=== PATIENT | male | born 1960 | race Caucasian/White ===

== ENCOUNTER 2017-05-21 22:09 | Emergency (ER) | payer BC ==
[~2017-05-21] VITALS: Ht 165.1 cm; Wt 82.0 kg
[2017-05-21] MEDS ORDERED: LEVETIRACETAM 500 MG TABLET PO STA (22:53)
[2017-05-21 23:34] LABS: BLOOD UREA NITROGEN 13 mg/dL (7-18)
[2017-05-22 00:01] VITALS: BP 122/78
== END 2017-05-22 00:27 | disposition home or self-care (01) ==
LOC: ED 23:59
DX: G40.909 Epilepsy, unspecified, not intractable, without status epilepticus (principal); F17.200 Nicotine dependence, unspecified, uncomplicated; Z88.0 Allergy status to penicillin
CPT/HCPCS: 36415; 80048; 82040; 85025; 93005; 99285